=== PATIENT | female | born 1985 | race Hispanic/Latino ===

== ENCOUNTER 2022-10-03 15:18 | Emergency (ER) | payer SELFPAY ==
--- OUTSIDE RECORDS SUMMARY | 2022-10-03 15:44 | XMS REPORT | Continuity of Care Document ---
:1985 Author Organization [facility] t Address [address] [place] [address] Care Team Providers Name Role Phone SOPHIA LE Primary Care Physician Unavailable KAREN MALDONADO Attending Clinician Unavailable SOPHIA LE Attending Clinician Unavailable Doctor Unassigned, [place] Attending Clinician Unavailable Elizabeth WHSophia PARSON Attending Clinician [phone] Karen Ace Attending Clinician Payers Payer Name Policy Type Policy Number Effective Date Expiration Date S sharee [place] [employer] [id number] 2022 00:00:00 MEDICAID [facility] [id number] 2022 00:00:00 Problems Condition Condition Condition Status Onset Resolution Last Treating Co mments Source Name Details Category Date Date Treatment Clinician Date Encounter Encounter Disease Active Uni vers for for 4-11 ity [place] of 00 Medical other other Branch contracept contracept gabino gabino IUD IUD Disease Active Univers (intrauter (intrauter 4-11 it y of ine ine 00:00: [place] device) in device) in [address] Branch BMI BMI Disease Active Univers 40.0-44.9, 40.0-44.9, 4-11 it y of adult adult 00:00: [place] 00 Medical Branch Trichimoni Trichimoni Disease Active 2017-11 U nivers asis asis 0-31 ity of 00:00: [place] 00 Medical Branch Vaginal Vaginal Disease Active 2017-11 Univers discharge discharge 0-29 ity of 00:00: [place] 00 Medical Branch Vaginal Vaginal Disease Active 2017-11 Univers itching itching 0-29 ity of 00:00: [place] 00 Medical Branch Encounter Encounter Disease Active 2016-11 Overview: Univers for for 1-10 Formattin ity of counseling counseling 00:00: g of this and note Medical instructio instructio might be Branch n in n in different natural natural from the family family original. planning planning Removal to avoid to avoid 09/15/22 Class 3 Class 3 Disease Active Univers severe severe 9-28 ity of obesity obesity 00:00: [place] due to due to 00 Medical excess excess Branch calories calories with body with body mass index mass index (BMI) of (BMI) of 40.0 to 40.0 to 44.9 in 44.9 in adult, adult, unspecifie unspecifie d whether d whether serious serious comorbidit comorbidit y present y present Gestationa Gestationa Disease Active U nivers l diabetes l diabetes 6-29 it y of mellitus, mellitus, [place] antepartum antepartum 00 Me dical Branch Anemia of Anemia of Disease Active Uni vers mother in mother in 3-01 [place]y of , , [place] antepartum antepartum 00 Me dical Branch Screening Screening Disease Active 2015-11 Uni vers for for 0-03 ity of venereal venereal 00:00: [place] disease disease 00 Medical Branch Allergies, Adverse Reactions, Alerts Allergy Allergy Status Severity Reaction(s) Onset Inactive Treating Comm ents Source Name Type Date Date Clinician NO KNOWN Drug Active Univers ALLERGIE Class ity of S [place] [facility] Social History Social Habit Start Date Stop Date Quantity Comments Source History SDDC University o f Alcohol Std [place] [facility] Drinks Branch History [facility] University o f Alcohol Binge [place] [facility] al [facility] History of Passive smoker University of tobacco use [place] [facility] History [facility] o f Alcohol Frequency [place] [facility] ed[facility] Exposure to 2022-07-12 2022-07-22 Not sure University of SARS-CoV-2 00:00:00 15:24:00 [place] [facility] (event) Branch Alcohol intake 2022-07-22 2022-07-22 Current drinker Unive rsity of 00:00:00 00:00:00 of alcohol [facility] [place] Tobacco use and 2022-07-18 2022-07-18 Smokeless tobacco Un iversity of exposure 00:00:00 00:00:[address] [facility] Alcohol Comment 2022-02-14 2022-02-14 social Universit y of 00:00:00 00:00:00 [facility] Sex Ass[birth year] At [birth year] Universit y of 00:00:00 00:00:00 [facility] Smoking Status Start Date Stop Date Source Never smoked tobacco [facility] Medications Ordered Filled Start Stop Current Ordering Indication Dosage Frequency Signature Comments Components Source Medication Medication Date Date Medication? Clinician (SIG) Name Name metroNIDAZO Yes [id number] 500mg Take 1 Univers LE 500 mg 9-19 tablet by ity o f tablet 00:00: mouth in [place] [address] the Medical morning [place] and 1 tablet in the evening. metroNIDAZO Yes [id number] 500mg Take 1 Univers LE 500 mg 9-19 tablet by ity o f tablet 00:00: mouth in [place] [address] the Medical morning [place] and 1 tablet in the evening. fluconazole 2021- Yes [id number] 150mg Take 1 Univers (DIFLUCAN) 9-16 -17 tablet by ity of 150 mg 00:00: 04:59 [place] tablet [place] :00 now for 1 Medical dose. Branch norgestimat Yes [id number] 1{tbl} Take 1 Univers e-ethinyl 7-22 tablet by ity o f estradioL [place] ([place]TH[place] 00 the Medical TRI-CYCLEN, morning. Bran ch 28,) 0.18/0.215/ 0.25 mg-35 mcg (28) tablet norgestimat Yes [id number] 1{tbl} Take 1 Univers e-ethinyl 7-22 tablet by ity o f estradioL [place] the Medical TRI-CYCLEN, morning. Bran ch 28,) 0.18/0.215/ 0.25 mg-35 mcg (28) tablet norgestimat Yes [id number] 1{tbl} Take 1 Univers e-ethinyl 7-22 tablet by ity o f estradioL [place] 00 the Medical TRI-CYCLEN, morning. Bran ch 28,) 0.18/0.215/ 0.25 mg-35 mcg (28) tablet norgestimat Yes [id number] 1{tbl} Take 1 Univers e-ethinyl 7-22 tablet by ity o f estradioL 00:[place]TH[place] 00 the Medical TRI-CYCLEN, morning. Bran ch 28,) 0.18/0.215/ 0.25 mg-35 mcg (28) tablet Immunizations Ordered Filled Immunization Date Status Comments [facility] e Immunization Name Name [facility] 2017-05-16 Completed University of 00:00:00 [facility] 2017-05-16 Completed University of 00:00:00 [facility] TDAP 2017-05-16 Completed University of 00:00:00 [facility] TDAP 2017-05-16 Completed University of 00:00:00 [facility] TDAP 2016-07-17 Completed University of 00:00:00 [facility] TDAP 2016-07-17 Completed University of 00:00:00 [facility] TDAP 2016-07-17 Completed University of 00:00:00 [facility] TDAP 2016-07-17 Completed University of 00:00:00 [facility] Influenza Virus 2015-10-13 Completed Universit y of Vaccine 00:00:00 [facility] Influenza Virus 2015-10-13 Completed Universit y of Vaccine 00:00:00 [facility] Influenza Virus 2015-10-13 Completed Universit y of Vaccine 00:00:00 [facility] Influenza Virus 2015-10-13 Completed Universit y of Vaccine 00:00:00 [facility] Vital Signs Vital Name Observation Time Observation Value Comments Source Systolic blood 2022-07-22 20:25:00 126 mm[Hg] Univer sity of pressure [facility] Diastolic blood 2022-07-22 20:25:00 84 mm[Hg] Unive rsity of pressure [facility] Heart rate 2022-07-22 20:25:00 102 /min Universi ty of [facility] Body temperature 2022-07-22 20:25:00 37.11 Kiya [facility] Respiratory rate 2022-07-22 20:25:00 18 /min [facility] Body height 2022-07-22 20:25:00 160 cm [facility] Body weight 2022-07-22 20:25:00 121.11 kg [facility] BMI 2022-07-22 20:25:00 47.30 kg/m2 [facility] Procedures Procedure Date / Time Performed Performing Clinician Sourc e DIABETES TESTING 2022-07-25 05:01:00 Doctor Unassigned, No Unive [facility] REPORTS Name [facility] POCT URINALYSIS W/O 2022-07-22 20:26:00 Sophia Le [facility] SPECIFIC GRAVITY [facility] Encounters Start End Encounter Admission Attending Care Care Encounter Source Date/Time Date/Time Type Type Clinicians Facility Department ID 2022-10-04 2022-10-04 Outpatient R ELIZABETH [facility] [id number] Univers 08:15:00 08:15:[address] [facility] 2022-07-25 2022-07-25 Orders Doctor GLENN [id number] Univers 00:00:00 00:00:00 Only Unassigned, JORDY [id number] ity of [place] [facility] [id number] En as [id number] [address] 2022-07-22 2022-07-22 Outpatient R ELIZABETH [facility] [id number] Univers 15:15:00 16:05:[address] [facility] 2022-07-22 2022-07-22 Office Elizabeth [facility] [id number] Univers 15:15:00 16:05:51 Visit Sophia Kelly [employer] [id number] ity [facility] [id number] En as MATERNAL [id number] [facility] ical & CHILD [address] [place] [address] 2022-07-22 2022-07-22 Patient Elizabeth IDCONNIE [id number] Univers 00:00:00 00:00:00 Secure Msg Sophia C [employer]IC[employer] P[employer] INSTRU[employer] [id number] ity of REGIONAL [id number] Ne as MATERNAL [id number] [facility] & CHILD [address] [place] [address] 2022-07-21 2022-07-21 Telephone [facility] [id number] 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 [id number] ity of REGIONAL [id number] En as MATERNAL [id number] [facility] & CHILD [address] [place] [address] 2022-07-18 2022-07-18 [facility] [id number] Univers 15:30:00 16:12:11 SOPHIA boydy o [facility] 2022-07-18 2022-07-18 Office [facility] [id number] Univers 15:30:00 16:12:11 Visit Sophia C [employer]IC[employer]TER P[employer] INSTRUCTOR [id number] ity of REGIONAL [id number] En as MATERNAL [id number] [address] 2022-05-27 2022-05-27 [facility] [id number] Univers 08:15:00 08:54:45 [facility] 2022-05-27 2022-05-27 Office [facility] [id number] Univers 08:15:00 08:54:45 Visit [facility] R 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 PILOT 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 [id number] ity of REGIONAL [id number] En as MATERNAL [id number] [address] 2022-05-27 2022-05-27 Outpatient R ERICA [facility] [id number] Univers 08:15:00 08:15:00 [facility] 2022-02-17 2022-02-17 Office [facility] [id number] Univers 07:45:00 08:17:11 Visit Rosanda R [employer] IN[employer] [id number] ity of REGIONAL [id number] En as MATERNAL [id number] [facility] & CHILD [address] [place] [address] 2022-02-17 2022-02-17 Outpatient R ERICA [facility] [id number] Univers 07:45:00 08:17:11 ELANANDA ity o [address] [facility] 2022-02-17 2022-02-17 Outpatient R ERICA [facility] [id number] Univers 07:45:00 07:45:00 ELANANDA ity o [facility] 2022-02-17 2022-02-17 Outpatient R ERICA [facility] [id number] Univers 07:45:00 07:45:00 ELANANDA ity o [facility] 2022-02-17 2022-02-17 Outpatient Dm MALDONADO [facility] [id number] Univers 07:45:00 07:45:00 ELANANDA ity o [facility] 2022-02-16 2022-02-16 Telephone [facility] [id number] Univers 00:00:00 00:00:00 Elananda R [employer] [id number] ity of REGIONAL [id number] En as MATERNAL [id number] [facility] & [address] 2022-02-14 2022-02-14 Outpatient Dm MALDONADO [facility] [id number] Univers 13:15:00 15:02:54 ELANANDA ity o [facility] 2022-02-14 2022-02-14 Office [facility] [id number] Univers 13:15:00 15:02:54 Visit Elananda R [employer]IC[employer] IN[employer] [id number] ity of REGIONAL [id number] En as MATERNAL [id number] [facility] & CHILD [address] [place] [address] 2022-02-14 2022-02-14 Outpatient Dm MALDONADO [facility] [id number] Univers 13:15:00 15:02:54 [address] o f [facility] 2022-02-14 2022-02-14 Outpatient R ERICA, [facility] [id number] Univers 13:15:00 13:15:00 KAREN boydy o f [facility] 2022-02-14 2022-02-14 Orders Doctor GLENN [id number] Univers 00:00:00 00:00:00 Only Unassigned, JORDY 350.1.13.10 ity of [place] [facility] [id number] En as [id number] [address] 2020-04-28 2020-04-28 Outpatient R ELIZABETH, [facility] [id number] Univers 15:00:00 15:00:00 [address] o f [facility] Results Test Description Test Time Test Comments Results Result Comments Source POCT URINALYSIS W/O SPECIFIC GRAVITY 2022-07-22 20:26:00 Test Item Value Reference Range Interpretation Comme nts POCT PH U (test code = 3254) 6 mg/dl 5-8 POCT U LEUK EST (test code = 3263) 2+ Negative - Negative POCT U NIT (test code = 3262) Neg Negative - Negative POCT U PROT (test code = 3259) Trace Negative - Negative POCT U GLU (test code = 3256) Neg Negative - Negative POCT U KETONE (test code = 3258) Small Negative - Negative POCT U BLD (test code = 3257) Large Negative - Negative [facility]
[2022-10-03 16:08] LABS: Absolute Lymphocytes (CBC) 1.5 K/uL (0.7-4.9); Hematocrit 34.3 % (36.0-45.0); Lymphocytes % 17.8 % (15.3-44.8); MCV 88.5 fL (80-100); MPV 8.1 fL (7.6-11.3); RBC Red Blood Cell Count 3.87 M/uL (3.86-4.86)
[2022-10-03 16:22] LABS: Potassium 3.5 mmol/L (3.5-5.1)
--- NOTE | 2022-10-03 16:38 | RAD REPORT ---
EXAM DESCRIPTION: US - Transvaginal Study Probe - 10/03/2022 4:26 pm CLINICAL HISTORY: VAGINAL BLEEDING Pelvic pain. COMPARISON: No comparisons FINDINGS: The uterus is normal in size, shape and echotexture. The uterus measures 9.9 x 4.2 x 5.6 c m with volume of 121 mL trace fluid in the endometrial canal. The endometrial stripe measures 8 mm, within normal limits The ovaries were not visualized. No significant pelvic ascites. IMPRESSION: Trace fluid in the endometrial canal which is nonspecific. No acute findings otherwise i dentified.Neither ovary was visualized.
--- NOTE | 2022-10-03 17:24 | ER ---
Nurse's Notes [facility] Name: Danielle Kamara Age: 36 yrs Sex: Female : 1985 Arrival Date: 10/03/2022 Time: 15:22 Bed IW6 Private MD: Diagnosis: Abnormal uterine and vaginal bleeding, unspecified Presentation: 10/03 16:05 Chief complaint: Patient states: Intermittent Vaginal bleeding with clots x 4 days. ss Coronavirus screen: Client denies travel out of the [place] in the last 14 days. Ebola Screen: Patient denies exposure to infectious person. Patient denies travel to an Ebola-affected area in the 21 days before illness onset. Initial Sepsis Screen: Does the patient meet any 2 criteria? No. Patient's initial sepsis screen is negative. Does the patient have a suspected source of infection? No. Patient's initial sepsis screen is negative. Risk Assessment: Do you want to hurt yourself or someone else? Patient reports no desire to harm self or others. Onset of symptoms was September 29, 2022. 16:05 Method Of Arrival: Ambulatory ss 16:05 Acuity: LENNIE 3 ss Historical: - Allergies: 16:06 No Known Allergies; ss - Home Meds: 16:06 None [Active]; ss - PMHx: 16:06 Anemia; ss - PSHx: 16:06 None; ss - Immunization history:: Client reports receiving the 2nd dose of the Covid vaccine. - Social history:: Smoking status: Patient denies any tobacco usage or history of. Vital Signs: 16:05 BP 109 / 74; Pulse 99; Resp 18; Temp 98.4(TE); Pulse Ox 100% on R/A; Weight 113.4 kg; ss Height 5 ft. 4 in. (162.56 cm); 16:05 Body Mass Index 42.91 (113.40 kg, 162.56 cm) ED Course: 15:22 Patient arrived in ED. mr 15:24 Dacia Block FNP-C is PHCP. kb 15:24 Kenny Espinoza DO is Attending Physician. kb 16:06 Triage completed. ss 16:06 Arm band placed on right wrist. ss 16:28 US Transvaginal Study (Probe) In Process Unspecified. EDMS Administered Medications: No medications were administered Outcome: 17:24 Discharge ordered by . giuliana 18:28 Patient left the ED. kb Signatures: Dispatcher [employer] EDDacia Lyman, SAMEER MARSH-Susan Cook [place], RN RN ss
--- NOTE | 2022-10-03 17:24 | EDPHYS ---
Physician Documentation [facility] Name: Danielle Kamara Age: 36 yrs Sex: Female : 1985 Arrival Date: 10/03/2022 Time: 15:22 Bed IW6 Private MD: ED Physician Kenny Espinoza HPI: 10/03 19:36 This 36 yrs old Female presents to ER via Ambulatory with complaints of kb Vaginal Bleeding. 19:36 The patient presents with vaginal bleeding that is moderate, heavy. Onset: The kb symptoms/episode began/occurred 4 day(s) ago. Modifying factors: The symptoms are alleviated by nothing, the symptoms are aggravated by nothing. Associated signs and symptoms: Pertinent positives: vaginal bleeding, Pertinent negatives: constipation, cramping, diarrhea, dyspareunia, dysuria, fever, hematuria, nausea, urinary frequency, vaginal discharge, vomiting. Severity of symptoms: At their worst the symptoms were moderate, in the emergency department the symptoms are unchanged. The patient has not experienced similar symptoms in the past. The patient has not recently seen a physician. Pt reports heavy vaginal bleeding since Monday. Reports this is the right time for her period, but she has not had one this heavy before. Historical: - Allergies: 16:06 No Known Allergies; ss - Home Meds: 16:06 None [Active]; ss - PMHx: 16:06 Anemia; ss - PSHx: 16:06 None; ss - Immunization history:: Client reports receiving the 2nd dose of the Covid vaccine. - Social history:: Smoking status: Patient denies any tobacco usage or history of. ROS: 19:36 Constitutional: Negative for fever, chills, and weight loss. kb 19:36 : Positive for vaginal bleeding. 19:36 All other systems are negative. Exam: 19:36 Constitutional: This is a well developed, well nourished patient who is awake, alert, kb and in no acute distress. Head/Face: Normocephalic, atraumatic. ENT: Moist Mucous membranes Cardiovascular: Regular rate and rhythm with a normal S1 and S2. No gallops, murmurs, or rubs. No pulse deficits. Respiratory: Respirations even and unlabored. No increased work of breathing. Talking in full sentences Abdomen/GI: Soft, non-tender. No distention Skin: Warm, dry with normal turgor. Normal color. MS/ Extremity: Pulses equal, no cyanosis. Neurovascular intact. Full, normal range of motion. Neuro: Awake and alert, GCS 15, oriented to person, place, time, and situation. Moves all extremities. Normal gait. Psych: Awake, alert, with orientation to person, place and time. Behavior, mood, and affect are within normal limits. Vital Signs: 16:05 BP 109 / 74; Pulse 99; Resp 18; Temp 98.4(TE); Pulse Ox 100% on R/A; Weight 113.4 kg; ss Height 5 ft. 4 in. (162.56 cm); 16:05 Body Mass Index 42.91 (113.40 kg, 162.56 cm) ss MDM: 15:45 Patient medically screened. kb 19:35 Data reviewed: vital signs, nurses notes. Data interpreted: Pulse oximetry: on room air kb is 100 %. Interpretation: normal. Counseling: I had a detailed discussion with the patient and/or guardian regarding: the historical points, exam findings, and any diagnostic results supporting the discharge/admit diagnosis, lab results, radiology results, the need for outpatient follow up, an OB/Gyne specialist, to return to the emergency department if symptoms worsen or persist or if there are any questions or concerns that arise at home. ED course: Pt has appt with OIL LABORATORY ANALYST at 0800 tomorrow morning. 10/03 15:45 Order name: Basic Metabolic Panel; Complete Time: 16:23 kb 10/03 15:45 Order name: CBC with Diff; Complete Time: 16:14 kb 10/03 15:45 Order name: IV Saline Lock; Complete Time: 17:16 kb 10/03 15:45 Order name: Labs collected and sent; Complete Time: 17:16 kb 10/03 15:45 Order name: NPO; Complete Time: 17:16 kb 10/03 15:45 Order name: US Transvaginal Study (Probe); Complete Time: 16:40 kb 10/03 15:45 Order name: Urine Dipstick-Ancillary (obtain specimen) kb 10/03 15:45 Order name: Urine Test (obtain specimen) kb Administered Medications: No medications were administered Disposition: 19:56 Co-signature as Attending Physician, Kenny Espinoza DO I was immediately available on-site ms3 in the Emergency Department for consultation in the care of the patient.. Disposition Summary: 10/03/22 17:24 Discharge Ordered Location: Home kb Condition: Stable kb Diagnosis - Abnormal uterine and vaginal bleeding, unspecified kb Followup: kb - With: Emergency Department - When: As needed - Reason: Worsening of condition Followup: kb - With: Private Physician - When: 2 - 3 days - Reason: Recheck today's complaints, Continuance of care, Re-evaluation by your physician Discharge Instructions: - Discharge Summary Sheet kb - Abnormal Uterine Bleeding, [id number] kb Forms: - Medication Reconciliation Form kb - Thank You Letter kb - Antibiotic Education kb - Prescription Opioid Use kb Signatures: Dispatcher [employer] EDMS Dacia Block, MAINTENANCE ASSOCIATE-C MAINTENANCE ASSOCIATE-Iwona Anna, ANA RN Kenny Avila, DO ms3
[2022-10-03 18:35] VITALS: BP 109/74; TEMP 98.4; O2SAT 100
== END 2022-10-03 18:28 | disposition home or self-care (01) ==
LOC: ER 15:18
DX: N93.9 Abnormal uterine and vaginal bleeding, unspecified (principal)
CPT/HCPCS: 36415; 76830; 80048; 85025; 99282